=== PATIENT | male | born 1945 | race Caucasian/White ===

== ENCOUNTER 2017-03-19 22:52 | Emergency (ER) | payer MEDICARE, OTHER | END 2017-03-20 00:39 | disposition home or self-care (01) | LOC: ER 22:52 | DX: M54.9 Dorsalgia, unspecified (principal); G89.29 Other chronic pain; M25.552 Pain in left hip; M79.605 Pain in left leg; M79.604 Pain in right leg; E11.40 Type 2 diabetes mellitus with diabetic neuropathy, unspecified; I10 Essential (primary) hypertension; J44.9 Chronic obstructive pulmonary disease, unspecified; Z95.5 Presence of coronary angioplasty implant and graft; Z96.642 Presence of left artificial hip joint; F17.210 Nicotine dependence, cigarettes, uncomplicated; Z79.899 Other long term (current) drug therapy; Z79.4 Long term (current) use of insulin; Z79.02 Long term (current) use of antithrombotics/antiplatelets | CPT/HCPCS: 99282 ==

== ENCOUNTER 2017-04-12 21:35 | Emergency (ER) | payer MEDICARE, OTHER | END 2017-04-12 22:05 | disposition home or self-care (01) | LOC: ER 21:35 | DX: I10 Essential (primary) hypertension (principal); Z79.899 Other long term (current) drug therapy; R60.0 Localized edema; J44.9 Chronic obstructive pulmonary disease, unspecified; G62.9 Polyneuropathy, unspecified | CPT/HCPCS: 99282; 99283 ==